=== PATIENT | female | born 1935 | race Caucasian/White ===

== ENCOUNTER → 2016-05-13 | Outpatient (CLI) | payer MEDICARE, OTHER | END | disposition home or self-care (01) | LOC: PCVCCLINIC 12:38 | PROVIDERS: ATTEND Internal Medicine Cardiovascular Disease | DX: I42.9 Cardiomyopathy, unspecified (principal); E78.5 Hyperlipidemia, unspecified; I73.9 Peripheral vascular disease, unspecified; I34.0 Nonrheumatic mitral (valve) insufficiency | CPT/HCPCS: 80061; 85610; 93005; G0463 ==

== ENCOUNTER → 2017-03-05 | Outpatient (CLI) | payer MEDICARE, OTHER | END | disposition home or self-care (01) | LOC: PCVCCLINIC 14:39 | DX: I42.8 Other cardiomyopathies (principal); I73.9 Peripheral vascular disease, unspecified; I34.0 Nonrheumatic mitral (valve) insufficiency; E78.00 Pure hypercholesterolemia, unspecified; F17.210 Nicotine dependence, cigarettes, uncomplicated; R09.89 Other specified symptoms and signs involving the circulatory and respiratory systems; R94.31 Abnormal electrocardiogram [ECG] [EKG]; Z86.711 Personal history of pulmonary embolism; Z79.01 Long term (current) use of anticoagulants; Z79.899 Other long term (current) drug therapy | CPT/HCPCS: 80061; 93005; G0463 ==

== ENCOUNTER → 2017-10-09 | Outpatient (CLI) | payer MEDICARE, OTHER ==
[~2017-10-09] MED LIST: REGADENOSON 0.4 MG/5 ML DISP.SYRIN. IV ONE
--- NOTE | 2017-10-09 09:26 | PCVCIMAG ---
APPROVED REPORT Indications Stenosis Doppler Spectral Velocity Analysis PSV / EDVPSV / EDV ECA (R) 66 / 7 cm/sECA (L) 117 / 7 cm/s dICA (R) 71 / 0 cm/sdICA (L) 83 / 27 cm/s Zeny (R) 101 / 19 cm/smICA (L) 103 / 24 cm/s pICA (R) 117 / 22 cm/spICA (L) 114 / 30 cm/s Bulb (R) 84 / 15 cm/sBulb (L) 53 / 12 cm/s dCCA (R) 99 / 20 cm/sdCCA (L) 106 / 17 cm/s mCCA (R) 94 / 21 cm/smCCA (L) 119 / 27 cm/s Vert (R) 65 / 10 cm/sVert (L) 67 / 20 cm/s ICA/CCA 1.18 ICA/CCA 1.08 Findings The right carotid bulb has moderate calcified plaque. The right proximal internal carotid artery shows 40-50% stenosis. The right common carotid artery shows <40% stenosis. The right external carotid artery shows <40% stenosis. The left carotid bulb has moderate calcified plaque. The left proximal internal carotid artery shows 40-50% stenosis. The left common carotid artery shows 40-50% stenosis. The left external carotid artery shows <40% stenosis. Conclusion 1. Left and right internal carotid artery stenoses (40-50%) 2. Right common carotid artery stenosis (<40%) 3. Left common carotid artery stenosis (40-50%) 4. Antegrade vertebral flow
--- NOTE | 2017-10-09 13:25 | PCVCIMAG ---
APPROVED REPORT Imaging Protocol: Rest Tc-99m/Stress Tc-99m 1 day Study performed: 10/09/2017 09:58:03 Indication: Cardiomyopathy Patient Location: Out-Patient Stress Nurse: Flakita Reynoso RN, Lolly Vargas RN [place] Tech:OFELIA Bush Ht: 5 ft 0 in Wt: 120 lbs BSA: 1.50 m2 HR: 71 bpm BP: 128/58 mmHg BMI: 23.4 Rhythm: NSR Medical History Medications: Losartan, Metoprolol,xarelto,atorvastatin Allergies: Cipro Cardiac Risk Factors: Age, Hyperlipidemia, Tobacco History (Current/Recent), COPD, PVD, Hx of PE Pretest Chest Pain Characteristics: No chest pain Physical Disabilities: Legs Meds Held (24 hrs): Metoprolol Resting Data Rest SPECT myocardial perfusion imaging was performed in supine position 45 minutes following the intravenous injection of 11.4 mCi of Tc-99m Sestamibi. Time of rest injection: 914 Date: 10/09/2017 Administration Route: IV Administration Site: Right AC Pharmacologic Stress Pharmacologic stress test was performed by injecting Regadenoson 0.4 mg IV push over 10-15 seconds immediately followed by the intravenous injection of 34.0 mCi of Tc-99m Sestamibi. Time of stress injection: 1050 Date: 10/09/2017 Administration Route: IV Administration Site: Right AC Gated Stress SPECT was performed 45 minutes after stress injection. The images were gated to evaluate regional wall motion and calculate left ventricular ejection fraction. Comments PRIOR NUC 06/2015: Perfusion Imaging: No evidence of stress induced ischemia or prior myocardial infarction. Mildly decreased left ventricular systolic function. No relevant prior studies available currently for comparison. Clinical findings: Nonischemic. EKG findings: Nonischemic. Stress Test Details Stress Test: Pharmacologic stress testing performed using 0.4 mg of regadenoson per 5 mL given IV over 10 seconds. Reason for pharmacologic stress test: physical limitation. HRMax Heart Rate (APMHR): 140 bpm Resting HR: 71 bpmTarget HR (85% APMHR): 119 bpm Max HR Achieved: 122 bpm % of APMHR: 87 Recovery HR: 104 bpm BP Resting BP: 128/58 mmHg Recovery BP: 122/56 mmHg ECG Resting ECG: Sinus Rhythm Stress ECG: Sinus Tachycardia Arrhythmia: PVCs Recovery ECG: Sinus Rhythm Clinical Reason for Termination: Completed protocol Stress Symptoms: Dyspnea, Lightheaded Exercise duration: 0 min 55 sec Symptoms resolved with caffeine. Stress ECG Conclusion 1. Adequate response to intravenous Lexiscan 2. Inadequate heart rate for ECG diagnosis Study Data Post stress, the left ventricular ejection was 61%.. SSS: 1 SRS: 5 SDS: 1 TID = 0.92. Perfusion There is a small area of mildly reduced uptake in the apical segment of the anterior wall which is seen on the stress images as well as the resting images. This area thickens and moves normally and is most consistent with attenuation artifact. Wall Motion Normal left ventricular wall motion. Nuclear Conclusion ECG Findings: non-diagnostic Clinical Findings: negative for ischemia Nuclear Findings: negative for ischemia Exercise Capacity: not assessed Left Ventricular Function: normal 1. Low risk study Interpreted by: Barrie Bauman MD Electronically Approved: 10/09/2017 13:24:34 <Conclusion> 1. Adequate response to intravenous Lexiscan 2. Inadequate heart rate for ECG diagnosis
--- NOTE | 2017-10-09 14:02 | PCVCIMAG ---
APPROVED REPORT Study performed: 10/09/2017 08:32:15 EXAM: Comprehensive 2D, Doppler, and color-flow Echocardiogram Patient Location: Echo lab Status: routine BSA: 1.46 HR: 73 bpmBP: 100/56 mmHg Rhythm: NSR Other Information Study Quality: Good Risk Factors: Cardiac Risk Factors: HTN, Hyperlipidemia, Smoking Indications Pulmonary Embolism Cardiomyopathy PVD 2D Dimensions LVEF(%): 19.53 (>50%) IVSd: 10.03 (7-11mm)LVOT Diam: 19.23 (18-24mm) LVDd: 33.86 mm PWd: 8.07 (7-11mm)Ascending Ao: 30.79 (22-36mm) LVDs: 30.96 (25-40mm) Left Atrium: 46.02 (27-40mm) Aortic Root: 28.06 mm LV Single Plane 4CH: 43.06 % LV Single Plane 2CH: 39.62 %Constantino's LVEF: 41.34 % Biplane EF: 40.8 % Volumes Left Atrial Volume (Systole) Single Plane 4CH: 21.92 mLSingle Plane 2CH: 30.13 mL LA ESV Index: 18.00 mL/m2 Aortic Valve AoV Peak Christian.: 1.42 m/s AO Peak Gr.: 8.12 mmHgLVOT Max P.41 mmHg LVOT Max V: 0.78 m/s SIGRID Vmax: 1.58 cm2 Mitral Valve E/A Ratio: 0.7 MV Decel. Time: 252.56 ms MV E Max Christian.: 0.70 m/s MV A Christian.: 0.94 m/s TDI E/Lateral E': 7.00E/Medial E': 14.00 Medial E' Christian.: 0.05 m/s Lateral E' Christian.: 0.10 m/s Pulmonary Valve PV Peak Gr.: 1.24 mmHg Pulmonary Vein P Vein S: 0.74 m/sP Vein A: 0.35 m/s P Vein D: 0.37 m/sP Vein A Dur.: 103.8 msec P Vein S/D Ratio: 2.00 Tricuspid Valve TR Peak Christian.: 3.13 m/s TR Peak Gr.: 39.17 mmHg Left Ventricle The left ventricle is normal size. There is normal LV segmental wall motion. There is normal left ventricular wall thickness. Left ventricular systolic function is mild to moderately decreased. LVEF is 45%. Grade I - abnormal relaxation pattern. Right Ventricle The right ventricle is normal size. The right ventricular systolic function is normal. Atria The left atrium size is normal. The right atrium size is normal. Aortic Valve Mild aortic valve sclerosis. No aortic regurgitation is present. There is no aortic valvular stenosis. Mitral Valve Mitral valve leaflets are mildly thickened. Mild mitral regurgitation. No evidence of mitral valve stenosis. Tricuspid Valve The tricuspid valve is normal in structure. Trace tricuspid regurgitation. Pulmonary artery pressure is 47mmhg. Pulmonic Valve The pulmonary valve is normal in structure. There is no pulmonic valvular regurgitation. Great Vessels The aortic root is normal in size. IVC is normal in size and collapses with >50% inspiration Pericardium There is no pericardial effusion. <Conclusion> The left ventricle is normal size. LVEF is 45%. Grade I - abnormal relaxation pattern. The right ventricle is normal size. The left atrium size is normal. Mild aortic valve sclerosis. There is no aortic valvular stenosis. Mild mitral regurgitation. The aortic root is normal in size. There is no pericardial effusion.
== END | disposition home or self-care (01) ==
LOC: PCVCIMAG 12:51
PROVIDERS: ATTEND Internal Medicine Cardiovascular Disease
DX: I48.91 Unspecified atrial fibrillation (principal); R09.89 Other specified symptoms and signs involving the circulatory and respiratory systems; I10 Essential (primary) hypertension; I65.23 Occlusion and stenosis of bilateral carotid arteries; I42.9 Cardiomyopathy, unspecified; I26.99 Other pulmonary embolism without acute cor pulmonale; I34.0 Nonrheumatic mitral (valve) insufficiency; I73.9 Peripheral vascular disease, unspecified; J44.9 Chronic obstructive pulmonary disease, unspecified; F17.210 Nicotine dependence, cigarettes, uncomplicated; Z79.01 Long term (current) use of anticoagulants
CPT/HCPCS: 78452; 80061; 93005; 93017; 93306; 93880; A9500; G0463; J2785

== ENCOUNTER → 2018-11-19 | Outpatient (CLI) | payer MEDICARE, OTHER | END | disposition home or self-care (01) | LOC: PCVCCLINIC 15:00 | PROVIDERS: ATTEND Internal Medicine Cardiovascular Disease | DX: I26.99 Other pulmonary embolism without acute cor pulmonale (principal); E78.00 Pure hypercholesterolemia, unspecified; I42.9 Cardiomyopathy, unspecified; I73.9 Peripheral vascular disease, unspecified; I34.0 Nonrheumatic mitral (valve) insufficiency; J44.9 Chronic obstructive pulmonary disease, unspecified; F17.210 Nicotine dependence, cigarettes, uncomplicated | CPT/HCPCS: 36415; 80061; 93005; G0463 ==